=== PATIENT | male | born 1945 | race Caucasian/White ===

== ENCOUNTER 2019-04-07 07:25 | Observation (INO) | payer MEDICARE ==
--- NOTE | 2019-04-07 07:43 | EDM.PDOC ---
ED HPI GENERAL MEDICAL PROBLEM - General Chief Complaint: Chest Pain Stated Complaint: SHORTNESS OF BREATH Time Seen by Provider: 04/07/19 07:40 - History of Present Illness INITIAL COMMENTS - FREE TEXT/NARRATIVE: HISTORY AND PHYSICAL: History of present illness: Patient 74-year-old white male history of chronic atrial fibrillation recently drove from [place] to [place] and developed shortness of breath after arrival this is primarily exertional. No associated chest pain he states he is currently on Xarelto and is compliant he denies history of pulmonary embolism denies history of congestive heart failure. Pulse oximetry on arrival 87% Review of systems: As per history of present illness and below otherwise all systems reviewed and negative. Past medical history: As per history of present illness and as reviewed below otherwise noncontributory. Surgical history: As per history of present illness and as reviewed below otherwise noncontributory. Social history: No reported history of drug or alcohol abuse. Family history: As per history of present illness and as reviewed below otherwise noncontributory. Physical exam: HEENT: Atraumatic, normocephalic, pupils reactive, negative for conjunctival pallor or scleral icterus, mucous membranes moist, throat clear, neck supple, nontender, trachea midline. Lungs: Clear to auscultation, breath sounds equal bilaterally, chest nontender. Heart: S1S2, irregularly irregular, negative for clicks, rubs, or JVD. Abdomen: Soft, nondistended, nontender. Negative for masses or hepatosplenomegaly. Negative for costovertebral tenderness. Pelvis: Stable nontender. Genitourinary: Deferred. Rectal: Deferred. Extremities: Atraumatic, negative for cords or calf pain. Neurovascular unremarkable. Neuro: Awake, alert, oriented. Cranial nerves II through XII unremarkable. Cerebellum unremarkable. Motor and sensory unremarkable throughout. Exam nonfocal. Diagnostics: CBC CMP PT/INR CTA chest BNP Therapeutics: IV O2 monitor Impression: #1 dyspnea #2 hypoxemia Definitive disposition and diagnosis as appropriate pending reevaluation and review of above. Lower Back Pain Score (Numeric/FACES): 2 - Related Data Allergies Allergy/AdvReac Type Severity Reaction Status Date / Time No Known Allergies Allergy Verified 04/07/19 07:34 Home Meds: Home Meds Allopurinol [Zyloprim] 04/07/19 [History] Metoprolol Tartrate [Lopressor] 100 mg PO 04/07/19 [History] Naproxen Sodium [Aleve] 04/07/19 [History] Rivaroxaban [Xarelto] 04/07/19 [History] Tamsulosin [Tamsulosin 24 Hr] 0.4 mg PO 04/07/19 [History] atorvaSTATin [Lipitor] 04/07/19 [History] glipiZIDE [Glucotrol] 04/07/19 [History] metFORMIN [Glucophage XR] 04/07/19 [History] Past Medical History Cardiovascular History: Reports: Afib, High Cholesterol, Hypertension Genitourinary History: Reports: Renal Calculus Musculoskeletal History: Reports: Other (See Below) Other Musculoskeletal History: lumbar stenosis Endocrine/Metabolic History: Reports: Diabetes, Type II Social & Family History - Tobacco Use Smoking Status *Q: Never Smoker ED ROS GENERAL - Review of Systems Review Of Systems: ROS reveals no pertinent complaints other than HPI. ED EXAM, GENERAL - Physical Exam Exam: See Below (See dictation) Course - Vital Signs Last Recorded V/S: Last Vital Signs Temp 37.1 C 04/07/19 07:34 Pulse 76 04/07/19 09:59 Resp 15 04/07/19 09:59 BP 142/76 H 04/07/19 09:59 Pulse Ox 97 04/07/19 09:59 - Orders/Labs/Meds Orders: Active Orders 24 hr Category Date Time Status Cardiac Monitoring [RC] . DIRECTED Care 04/07/19 07:36 Active EKG Documentation Completion [RC] STAT Care 04/07/19 07:35 Active Labs: Laboratory Tests 04/07/19 04/07/19 04/07/19 Range/Units 07:36 07:36 07:36 WBC 8.23 (4.0-11.0) K/uL RBC 4.27 L (4.50-5.90) M/uL Hgb 13.2 (13.0-17.0) g/dL Hct 41.6 (38.0-50.0) % MCV 97.4 (80.0-98.0) fL MCH 30.9 (27.0-32.0) pg MCHC 31.7 (31.0-37.0) g/dL RDW Std Deviation 50.9 (28.0-62.0) fl RDW Coeff of Natalia 15 (11.0-15.0) % Plt Count 200 (150-400) K/uL MPV 11.20 (7.40-12.00) fL Neut % (Auto) 70.3 (48.0-80.0) % Lymph % (Auto) 15.9 L (16.0-40.0) % [place] % (Auto) 10.8 (0.0-15.0) % Eos % (Auto) 2.8 (0.0-7.0) % Baso % (Auto) 0.2 (0.0-1.5) % Neut # (Auto) 5.8 H (1.4-5.7) K/uL Lymph # (Auto) 1.3 (0.6-2.4) K/uL [place] # (Auto) 0.9 H (0.0-0.8) K/uL Eos # (Auto) 0.2 (0.0-0.7) K/uL Baso # (Auto) 0.0 (0.0-0.1) K/uL Nucleated RBC % 0.0 /100WBC Nucleated RBCs # 0 K/uL INR 1.26 Sodium 145 (136-148) mmol/L Potassium 4.3 (3.5-5.1) mmol/L Chloride 108 H (98-107) mmol/L Carbon Dioxide 25.6 (21.0-32.0) mmol/L BUN 19 H (7.0-18.0) mg/dL Creatinine 1.1 (0.8-1.3) mg/dL Est Cr Clr Drug Dosing 68.60 mL/min Estimated GFR (MDRD) > 60.0 ml/min Glucose 164 H (74-106) mg/dL Calcium 9.3 (8.5-10.1) mg/dL Total Bilirubin 0.9 (0.2-1.0) mg/dL AST 11 L (15-37) IU/L ALT 9 L (14-63) IU/L Alkaline Phosphatase 101 (46-116) U/L Troponin I < 0.050 (0.000-0.056) ng/mL B-Natriuretic Peptide (<100) PG/ML Total Protein 7.0 (6.4-8.2) g/dL Albumin 4.0 (3.4-5.0) g/dL Globulin 3.0 (2.6-4.0) g/dL Albumin/Globulin Ratio 1.3 (0.9-1.6) Urine Color Urine Appearance Urine pH (5.0-8.0) Ur Specific [place] (1.001-1.035) Urine Protein (NEGATIVE) mg/dL Urine Glucose (UA) (NEGATIVE) mg/dL Urine Ketones (NEGATIVE) mg/dL Urine Occult Blood (NEGATIVE) Urine Nitrite (NEGATIVE) Urine Bilirubin (NEGATIVE) Urine Urobilinogen (<2.0) EU/dL Ur Leukocyte Esterase (NEGATIVE) Urine RBC (0-2/HPF) Urine WBC (0-5/HPF) Ur Epithelial Cells (NONE-FEW) Urine Bacteria (NEGATIVE) 04/07/19 04/07/19 Range/Units 07:36 09:18 WBC (4.0-11.0) K/uL RBC (4.50-5.90) M/uL Hgb (13.0-17.0) g/dL Hct (38.0-50.0) % MCV (80.0-98.0) fL MCH (27.0-32.0) pg MCHC (31.0-37.0) g/dL RDW Std Deviation (28.0-62.0) fl RDW Coeff of Natalia (11.0-15.0) % Plt Count (150-400) K/uL MPV (7.40-12.00) fL Neut % (Auto) (48.0-80.0) % Lymph % (Auto) (16.0-40.0) % [place] % (Auto) (0.0-15.0) % Eos % (Auto) (0.0-7.0) % Baso % (Auto) (0.0-1.5) % Neut # (Auto) (1.4-5.7) K/uL Lymph # (Auto) (0.6-2.4) K/uL [place] # (Auto) (0.0-0.8) K/uL Eos # (Auto) (0.0-0.7) K/uL Baso # (Auto) (0.0-0.1) K/uL Nucleated RBC % /100WBC Nucleated RBCs # K/uL INR Sodium (136-148) mmol/L Potassium (3.5-5.1) mmol/L Chloride (98-107) mmol/L Carbon Dioxide (21.0-32.0) mmol/L BUN (7.0-18.0) mg/dL Creatinine (0.8-1.3) mg/dL Est Cr Clr Drug Dosing mL/min Estimated GFR (MDRD) ml/min Glucose (74-106) mg/dL Calcium (8.5-10.1) mg/dL Total Bilirubin (0.2-1.0) mg/dL AST (15-37) IU/L ALT (14-63) IU/L Alkaline Phosphatase (46-116) U/L Troponin I (0.000-0.056) ng/mL B-Natriuretic Peptide 308 H (<100) PG/ML Total Protein (6.4-8.2) g/dL Albumin (3.4-5.0) g/dL Globulin (2.6-4.0) g/dL Albumin/Globulin Ratio (0.9-1.6) Urine Color YELLOW Urine Appearance CLEAR Urine pH 5.5 (5.0-8.0) Ur Specific [place] 1.010 (1.001-1.035) Urine Protein NEGATIVE (NEGATIVE) mg/dL Urine Glucose (UA) NEGATIVE (NEGATIVE) mg/dL Urine Ketones NEGATIVE (NEGATIVE) mg/dL Urine Occult Blood TRACE-INTACT H (NEGATIVE) Urine Nitrite NEGATIVE (NEGATIVE) Urine Bilirubin NEGATIVE (NEGATIVE) Urine Urobilinogen 0.2 (<2.0) EU/dL Ur Leukocyte Esterase NEGATIVE (NEGATIVE) Urine RBC 0-2 (0-2/HPF) Urine WBC 0-1 (0-5/HPF) Ur Epithelial Cells NOT SEEN (NONE-FEW) Urine Bacteria RARE (NEGATIVE) Meds: Medications Discontinued Medications Generic Name Dose Route Start Last Admin Trade Name Freq PRN Reason Stop Dose Admin Furosemide 20 mg 04/07/19 09:05 04/07/19 09:12 Lasix IVPUSH 04/07/19 09:06 20 mg NOW ONE Administration Iopamidol 50 ml 04/07/19 08:53 04/07/19 08:53 Isovue Multipack-370 (76%) IVPUSH 04/07/19 08:54 50 ml ONETIME STA Administration Departure - Departure Time of Disposition: 10:26 Disposition: Refer to Observation Condition: Good Clinical Impression: Dyspnea, Hypoxemia, Chronic atrial fibrillation, Bilateral pleural effusion, CHF (congestive heart failure) - Discharge Information Referrals: PCP,Not In Area [Primary Care Provider] - Forms: ED Department Discharge - My Orders Last 24 Hours: My Active Orders 04/07/19 07:35 EKG Documentation Completion [RC] STAT 04/07/19 07:36 Cardiac Monitoring [RC] . DIRECTED - Assessment/Plan Last 24 Hours: My Active Orders 04/07/19 07:35 EKG Documentation Completion [RC] STAT 04/07/19 07:36 Cardiac Monitoring [RC] . DIRECTED
[2019-04-07 08:12] LABS: CHLORIDE,CL 108 mmol/L (98-107); SODIUM,NA 145 mmol/L (136-148)
[2019-04-07] MEDS ORDERED: Iopamidol 755 MG/ML 500 ML Multipack Bottle IVPUSH STA (08:53)
[2019-04-07] MEDS ORDERED: Furosemide 40 MG/4 ML VIAL IVPUSH ONE (09:05)
--- NOTE | 2019-04-07 10:25 | CT ---
Report: INDICATION: Shortness of breath. TECHNIQUE: Multiple axial images were obtained from the apices to the diaphragm per the pulmonary artery embolism protocol after administration of 50 mL of Isovue-370 intravenously. Sagittal and coronal re-formatted was were obtained. COMPARISON: None. FINDINGS: There are small bilateral effusions with atelectasis. There are emphysematous changes in the lungs. There is a calcified granuloma in the left lower lobe with calcified subcarinal lymph nodes. There is no axillary, mediastinal or hilar adenopathy. 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 There are atherosclerotic calcifications. There is no pulmonary embolism seen. There are splenic calcifications consistent with previous granulomatous disease. IMPRESSION: No pulmonary embolism seen. Small bilateral effusions with atelectasis. Emphysematous changes in lungs. 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 Evidence of previous granulomatous disease. Signed by: Librado Delong MD @04/07/2019 9:14:25 AM Please note that all CT scans at this facility use dose modulation, iterative reconstruction, and/or weight-based dosing when appropriate to reduce radiation dose to as low as reasonably achievable. DW/Dictated by: Librado Delong MD @ 04/07/2019 9:14:00 AM (Electronically Signed)
[2019-04-07] MEDS ORDERED: Acetaminophen 325 MG Tab PO PRN (11:05)
[2019-04-07] MEDS ORDERED: oxyCODONE 5 MG Tab PO PRN (11:05)
--- NOTE | 2019-04-07 11:09 | PCM.HP ---
H&P History of Present Illness - General Date of Service: 04/07/19 Admit Problem/Dx: Admission Diagnosis/Problem Admission Diagnosis/Problem Dyspnea Source of Information: Patient, Family History Limitations: Reports: No Limitations - History of Present Illness Initial Comments - Free Text/Narative: The patient is a 74-year-old gentleman who is presented to the emergency department out of concern for chest pressure or tightness. Patient says that he has had these episodes off and on for the past several days. The patient also has had some shortness of breath associated with this. He's had no dizziness or lightheadedness. No nausea or vomiting. The patient is a diabetic. He also has hypertension as well as a history of heart disease. He is in chronic atrial fibrillation and has been taking medication for rate control as well as anticoagulation. The patient does not have any pain at the present time. He does not use oxygen at home. Onset of Symptoms: Reports: Gradual Duration of Symptoms: Reports: Day(s): Location: Reports: Chest Quality: Reports: Pressure Severity: Mild Improves with: Reports: None Worsens with: Reports: None Associated Symptoms: Reports: No Other Symptoms Lower Back Pain Score (Numeric/FACES): 2 - Related Data Allergies/Adverse Reactions: Allergies Allergy/AdvReac Type Severity Reaction Status Date / Time No Known Allergies Allergy Verified 04/07/19 07:34 Home Medications: Home Meds Allopurinol [Zyloprim] 300 mg PO BEDTIME 04/07/19 [History] Gabapentin [Neurontin] 100 mg PO TID 04/07/19 [History] Metoprolol Succinate 100 mg PO BEDTIME 04/07/19 [History] Naproxen Sodium [Aleve] 220 mg PO BID PRN 04/07/19 [History] Rivaroxaban [Xarelto] 25 mg PO BEDTIME 04/07/19 [History] Tamsulosin [Tamsulosin 24 Hr] 0.4 mg PO DAILY 04/07/19 [History] atorvaSTATin [Lipitor] 40 mg PO BEDTIME 04/07/19 [History] glipiZIDE [Glucotrol] 5 mg PO BID 04/07/19 [History] metFORMIN [Glucophage XR] 1,000 mg PO BID 04/07/19 [History] Past Medical History HEENT History: Reports: None Cardiovascular History: Reports: Afib, High Cholesterol, Hypertension Respiratory History: Reports: None Gastrointestinal History: Reports: None Genitourinary History: Reports: Renal Calculus Musculoskeletal History: Reports: Other (See Below) Other Musculoskeletal History: lumbar stenosis Neurological History: Reports: None Psychiatric History: Reports: None Endocrine/Metabolic History: Reports: Diabetes, Type II Hematologic History: Reports: None Immunologic History: Reports: None Oncologic (Cancer) History: Reports: Colon Dermatologic History: Reports: None Social & Family History - Tobacco Use Smoking Status *Q: Never Smoker - Alcohol Use Alcohol Use History: Yes Alcohol Use in Last Twelve Months: Yes Alcohol Use Frequency: Weekly - Living Situation & Occupation Living situation: Reports: , with Spouse Occupation: Retired H&P Review of Systems - Review of Systems: Review Of Systems: See Below General: Reports: No Symptoms HEENT: Reports: No Symptoms Pulmonary: Reports: Shortness of Breath Cardiovascular: Reports: Chest Pain Gastrointestinal: Reports: No Symptoms Genitourinary: Reports: No Symptoms Musculoskeletal: Reports: No Symptoms Skin: Reports: No Symptoms Psychiatric: Reports: No Symptoms Neurological: Reports: No Symptoms Hematologic/Lymphatic: Reports: No Symptoms Immunologic: Reports: No Symptoms Exam - Exam Exam: See Below - Vital Signs Vital Signs: Last Vital Signs Temp 37.1 C 04/07/19 07:34 Pulse 108 H 04/07/19 10:39 Resp 15 04/07/19 10:39 BP 149/107 H 04/07/19 10:39 Pulse Ox 85 L 04/07/19 10:39 Weight: 104.326 kg - Exam Quality Assessment: Supplemental Oxygen General: Alert, Oriented, Cooperative HEENT: Conjunctiva Clear, EACs Clear, EOMI, Mucosa Moist & [place], Nares Patent, Pupils Equal, PERRLA Neck: Supple, Trachea Midline Lungs: Clear to Auscultation, Normal Respiratory Effort Cardiovascular: Regular Rate, Irregular Rhythm. No: Systolic Murmur, Diastolic Murmur GI/Abdominal Exam: Normal Bowel Sounds, Soft, Non-Tender, No Distention. No: Guarding, Rigid, Rebound Back Exam: Normal Inspection, Full Range of Motion Extremities: Normal Inspection, Normal Range of Motion, No Pedal Edema Skin: Warm, Dry, Intact Neurological: Cranial Nerves Intact Neuro Extensive - Mental Status: Alert, Oriented x3 Psychiatric: Alert, Normal Affect, Normal Mood - Patient Data Lab Results Last 24 hrs: Laboratory Results - last 24 hr 04/07/19 04/07/19 04/07/19 Range/Units 07:36 07:36 07:36 WBC 8.23 (4.0-11.0) K/uL RBC 4.27 L (4.50-5.90) M/uL Hgb 13.2 (13.0-17.0) g/dL Hct 41.6 (38.0-50.0) % MCV 97.4 (80.0-98.0) fL MCH 30.9 (27.0-32.0) pg MCHC 31.7 (31.0-37.0) g/dL RDW Std Deviation 50.9 (28.0-62.0) fl RDW Coeff of Natalia 15 (11.0-15.0) % Plt Count 200 (150-400) K/uL MPV 11.20 (7.40-12.00) fL Neut % (Auto) 70.3 (48.0-80.0) % Lymph % (Auto) 15.9 L (16.0-40.0) % [place] % (Auto) 10.8 (0.0-15.0) % Eos % (Auto) 2.8 (0.0-7.0) % Baso % (Auto) 0.2 (0.0-1.5) % Neut # (Auto) 5.8 H (1.4-5.7) K/uL Lymph # (Auto) 1.3 (0.6-2.4) K/uL [place] # (Auto) 0.9 H (0.0-0.8) K/uL Eos # (Auto) 0.2 (0.0-0.7) K/uL Baso # (Auto) 0.0 (0.0-0.1) K/uL Nucleated RBC % 0.0 /100WBC Nucleated RBCs # 0 K/uL INR 1.26 Sodium 145 (136-148) mmol/L Potassium 4.3 (3.5-5.1) mmol/L Chloride 108 H (98-107) mmol/L Carbon Dioxide 25.6 (21.0-32.0) mmol/L BUN 19 H (7.0-18.0) mg/dL Creatinine 1.1 (0.8-1.3) mg/dL Est Cr Clr Drug Dosing 68.60 mL/min Estimated GFR (MDRD) > 60.0 ml/min Glucose 164 H (74-106) mg/dL Calcium 9.3 (8.5-10.1) mg/dL Total Bilirubin 0.9 (0.2-1.0) mg/dL AST 11 L (15-37) IU/L ALT 9 L (14-63) IU/L Alkaline Phosphatase 101 (46-116) U/L Troponin I < 0.050 (0.000-0.056) ng/mL B-Natriuretic Peptide (<100) PG/ML Total Protein 7.0 (6.4-8.2) g/dL Albumin 4.0 (3.4-5.0) g/dL Globulin 3.0 (2.6-4.0) g/dL Albumin/Globulin Ratio 1.3 (0.9-1.6) Urine Color Urine Appearance Urine pH (5.0-8.0) Ur Specific [place] (1.001-1.035) Urine Protein (NEGATIVE) mg/dL Urine Glucose (UA) (NEGATIVE) mg/dL Urine Ketones (NEGATIVE) mg/dL Urine Occult Blood (NEGATIVE) Urine Nitrite (NEGATIVE) Urine Bilirubin (NEGATIVE) Urine Urobilinogen (<2.0) EU/dL Ur Leukocyte Esterase (NEGATIVE) Urine RBC (0-2/HPF) Urine WBC (0-5/HPF) Ur Epithelial Cells (NONE-FEW) Urine Bacteria (NEGATIVE) 04/07/19 04/07/19 Range/Units 07:36 09:18 WBC (4.0-11.0) K/uL RBC (4.50-5.90) M/uL Hgb (13.0-17.0) g/dL Hct (38.0-50.0) % MCV (80.0-98.0) fL MCH (27.0-32.0) pg MCHC (31.0-37.0) g/dL RDW Std Deviation (28.0-62.0) fl RDW Coeff of Natalia (11.0-15.0) % Plt Count (150-400) K/uL MPV (7.40-12.00) fL Neut % (Auto) (48.0-80.0) % Lymph % (Auto) (16.0-40.0) % [place] % (Auto) (0.0-15.0) % Eos % (Auto) (0.0-7.0) % Baso % (Auto) (0.0-1.5) % Neut # (Auto) (1.4-5.7) K/uL Lymph # (Auto) (0.6-2.4) K/uL [place] # (Auto) (0.0-0.8) K/uL Eos # (Auto) (0.0-0.7) K/uL Baso # (Auto) (0.0-0.1) K/uL Nucleated RBC % /100WBC Nucleated RBCs # K/uL INR Sodium (136-148) mmol/L Potassium (3.5-5.1) mmol/L Chloride (98-107) mmol/L Carbon Dioxide (21.0-32.0) mmol/L BUN (7.0-18.0) mg/dL Creatinine (0.8-1.3) mg/dL Est Cr Clr Drug Dosing mL/min Estimated GFR (MDRD) ml/min Glucose (74-106) mg/dL Calcium (8.5-10.1) mg/dL Total Bilirubin (0.2-1.0) mg/dL AST (15-37) IU/L ALT (14-63) IU/L Alkaline Phosphatase (46-116) U/L Troponin I (0.000-0.056) ng/mL B-Natriuretic Peptide 308 H (<100) PG/ML Total Protein (6.4-8.2) g/dL Albumin (3.4-5.0) g/dL Globulin (2.6-4.0) g/dL Albumin/Globulin Ratio (0.9-1.6) Urine Color YELLOW Urine Appearance CLEAR Urine pH 5.5 (5.0-8.0) Ur Specific [place] 1.010 (1.001-1.035) Urine Protein NEGATIVE (NEGATIVE) mg/dL Urine Glucose (UA) NEGATIVE (NEGATIVE) mg/dL Urine Ketones NEGATIVE (NEGATIVE) mg/dL Urine Occult Blood TRACE-INTACT H (NEGATIVE) Urine Nitrite NEGATIVE (NEGATIVE) Urine Bilirubin NEGATIVE (NEGATIVE) Urine Urobilinogen 0.2 (<2.0) EU/dL Ur Leukocyte Esterase NEGATIVE (NEGATIVE) Urine RBC 0-2 (0-2/HPF) Urine WBC 0-1 (0-5/HPF) Ur Epithelial Cells NOT SEEN (NONE-FEW) Urine Bacteria RARE (NEGATIVE) Result Diagrams: 04/07/19 07:36 04/07/19 07:36 *Q Meaningful Use (ADM) - VTE *Q VTE Pharmacological Contraindications *Q: Risk of Bleeding - Problem List (1) Atypical chest pain SNOMED Code(s): 049063613 ICD Code: R07.89 - OTHER CHEST PAIN Status: Acute Priority: High Current Visit: Yes (2) Chronic anticoagulation SNOMED Code(s): 157637943 ICD Code: Z79.01 - TOWN CLERK (CURRENT) USE OF ANTICOAGULANTS Status: Chronic Priority: High Current Visit: Yes (3) Chronic atrial fibrillation SNOMED Code(s): 603258131 ICD Code: I48.2 - CHRONIC ATRIAL FIBRILLATION Status: Chronic Priority: Medium Current Visit: Yes (4) Hypertension SNOMED Code(s): 42032166 ICD Code: I10 - ESSENTIAL (PRIMARY) HYPERTENSION Status: Chronic Priority : Medium Current Visit: Yes Qualifiers: Hypertension type: essential hypertension Qualified Code(s): I10 - Essential (primary) hypertension Problem List Initiated/Reviewed/Updated: Yes Orders Last 24hrs: Active Orders 24 hr Category Date Time Status Admission Status [Patient Status] [ADT] Stat ADT 04/07/19 10:26 Active Ambulate [RC] PER UNIT ROUTINE Care 04/07/19 11:06 Ordered Cardiac Monitoring [RC] . DIRECTED Care 04/07/19 07:36 Active Cardiac Monitoring [RC] CONTINUOUS Care 04/07/19 11:04 Active Diabetes Education [RC] Click to Edit Care 04/07/19 11:06 Ordered EKG Documentation Completion [RC] STAT Care 04/07/19 07:35 Active Oxygen Therapy [RC] PRN Care 04/07/19 11:01 Active Oxygen Therapy [RC] PRN Care 04/07/19 11:04 Active Oxygen Therapy [RC] PRN Care 04/07/19 11:05 Ordered Up ad Janice [RC] ASDIRECTED Care 04/07/19 11:04 Active VTE/DVT Education [RC] PER UNIT ROUTINE Care 04/07/19 11:01 Active VTE/DVT Education [RC] PER UNIT ROUTINE Care 04/07/19 11:04 Active VTE/DVT Education [RC] PER UNIT ROUTINE Care 04/07/19 11:05 Ordered Vital Signs [RC] Q4H Care 04/07/19 11:01 Active Vital Signs [RC] Q4H Care 04/07/19 11:04 Active Vital Signs [RC] Q4H Care 04/07/19 11:05 Ordered [place] [employer] Diet [DIET] Diet 04/07/19 Dinner Ordered TROPONIN I [CHEM] Q6H Lab 04/07/19 12:00 Ordered TROPONIN I [CHEM] Q6H Lab 04/07/19 18:00 Ordered Acetaminophen [Tylenol] Med 04/07/19 11:05 Ordered 650 mg PO Q4H PRN Sodium Chloride 0.9% [Normal Saline] 1,000 ml Med 04/07/19 11:15 Ordered IV ASDIRECTED oxyCODONE Med 04/07/19 11:05 Ordered 5 mg PO Q4H PRN Glucose Management Sub Q Reflex [OM.PC] Click To Edit Oth 04/07/19 11:05 Ordered VTE Pharmacological Contraindications [AST] Per Unit Oth 04/07/19 11:05 Ordered Routine Resuscitation Status Routine Resus Stat 04/07/19 11:01 Ordered Assessment/Plan Comment:: The patient is a 74-year-old gentleman who will be kept under observation out of concern for anginal equivalents with regards to his chest pressure and shortness of breath. I've ordered repeat troponins. The patient will also not need to have DVT prophylaxis as he is currently anticoagulated with the uses Xarelto. His dose of his Xarelto will be continued. The patient also has been encouraged to ambulate. I've advised the patient has that if he does have 3 sets of troponins that were essentially negative we'll consider discharge home. If the patient does have elevations in his troponins the patient will need to be evacuated to tertiary care center. He will be kept on telemetry. He' ll have his vital signs checked and his antihypertensive medications will be adjusted accordingly. The patient will also have a cardiac diet. He should be appropriate for discharge tomorrow.
[2019-04-07] MEDS: Sodium Chloride 0.9% 1,000 ML IV SCH (12:46)
[2019-04-07] MEDS: Insulin Aspart 100 Units/ML 3 ML Pen SUBCUT SCH ×3 (12:46→21:06)
[2019-04-07] MEDS ORDERED: Metoprolol Succinate 100 MG Tab.ER PO SCH (21:00)
[2019-04-07] MEDS ORDERED: Rivaroxaban 10 MG Tab PO SCH (21:00)
[2019-04-07] MEDS ORDERED: Allopurinol 300 MG Tab PO SCH (21:00)
[2019-04-07] MEDS ORDERED: atorvaSTATin 40 MG Tab PO SCH (21:00)
[2019-04-07] MEDS: Gabapentin 100 MG Cap PO SCH (21:03)
[2019-04-08] MEDS: Sodium Chloride 0.9% 1,000 ML IV SCH (02:08)
[2019-04-08] MEDS: Gabapentin 100 MG Cap PO SCH (06:09)
--- NOTE | 2019-04-08 06:43 | PCM.DCSUM1 ---
Discharge Summary - Hospital Course Diagnosis: Stroke: No - Discharge Data Discharge Date: 04/08/19 Discharge Disposition: Home, Self-Care 01 Condition: Good - Discharge Diagnosis/Problem(s) (1) Atypical chest pain SNOMED Code(s): 418828406 ICD Code: R07.89 - OTHER CHEST PAIN Status: Resolved Priority: High Current Visit: Yes (2) Chronic anticoagulation SNOMED Code(s): 969610183 ICD Code: Z79.01 - PENITENTIARY (CURRENT) USE OF ANTICOAGULANTS Status: Chronic Priority: High Current Visit: Yes (3) Chronic atrial fibrillation SNOMED Code(s): 380715811 ICD Code: I48.2 - CHRONIC ATRIAL FIBRILLATION Status: Chronic Priority: Medium Current Visit: Yes (4) Hypertension SNOMED Code(s): 60063001 ICD Code: I10 - ESSENTIAL (PRIMARY) HYPERTENSION Status: Chronic Priority : Medium Current Visit: Yes Qualifiers: Hypertension type: essential hypertension Qualified Code(s): I10 - Essential (primary) hypertension (5) Diabetes type 2, controlled SNOMED Code(s): 70366639, 077089836 ICD Code: E11.9 - TYPE 2 DIABETES MELLITUS WITHOUT COMPLICATIONS Status: Chronic Priority: High Current Visit: Yes Qualifiers: Diabetes mellitus half-way insulin use: without half-way use Diabetes mellitus complication status: without complication Qualified Code(s): E11.9 - Type 2 diabetes mellitus without complications - Patient Summary/Data Hospital Course: The patient is a 74-year-old gentleman who had presented to the emergency department with a primary complaint of chest pressure and tightness. He also had shortness of breath to accompany this. The patient had 3 separate episodes of this over the past 6 days. The patient is from [place] and he normally follows up with a hog driver there. The patient was admitted secondary to concern for anginal equivalents. Patient has a history of chronic atrial fibrillation and he is currently chronically anticoagulated. During the patient' s short course of hospitalization he remained well oxygenated. He had 3 sets of troponins which were taken and nondetectable. Overnight telemetry showed no events. The patient had a CT angiogram of his chest on April 07, 2019 which showed no pulmonary emboli and he was also noted to have small bilateral pleural effusions with atelectasis. The patient had some emphysematous changes as well. The patient had been tolerating his diet. He has not required oxygen throughout his course of hospitalization. The patient is recommended to continue with his diet as tolerated. He is also to have activity as tolerated. The patient has been recommended follow-up with his primary care physician upon return home. The patient has been hemodynamically stable and he is discharged from acute hospitalization with recommendations listed above. - Patient Instructions Diet: Heart Healthy Diet, Diabetic Diet Activity: As Tolerated - Discharge Plan *PRESCRIPTION DRUG MONITORING PROGRAM REVIEWED*: No *COPY OF PRESCRIPTION DRUG MONITORING REPORT IN PATIENT EBER: No Home Medications: Home Meds Allopurinol [Zyloprim] 300 mg PO BEDTIME 04/07/19 [History] Gabapentin [Neurontin] 100 mg PO TID 04/07/19 [History] Metoprolol Succinate 100 mg PO BEDTIME 04/07/19 [History] Naproxen Sodium [Aleve] 220 mg PO BID PRN 04/07/19 [History] Rivaroxaban [Xarelto] 25 mg PO BEDTIME 04/07/19 [History] Tamsulosin [Flomax] 0.4 mg PO DAILY 04/07/19 [History] atorvaSTATin [Lipitor] 40 mg PO BEDTIME 04/07/19 [History] glipiZIDE [Glucotrol] 5 mg PO BID 04/07/19 [History] metFORMIN [Glucophage XR] 1,000 mg PO BID 04/07/19 [History] Patient Handouts: Hypoxemia, Nonspecific Chest Pain, [id number], Atrial Fibrillation, [id number] - Discharge Summary/Plan Comment DC Time >30 min.: Yes - General Info Date of Service: 04/08/19 Admission Dx/Problem (Free Text: The patient overall is doing much better today. He has denied any dizziness or lightheadedness. No chest pressure. - Patient Data Vitals - Most Recent: Last Vital Signs Temp 37.2 C 04/08/19 04:00 Pulse 77 04/08/19 04:00 Resp 18 04/08/19 04:00 BP 146/89 H 04/08/19 04:00 Pulse Ox 93 L 04/08/19 04:00 Weight - Most Recent: 104.326 kg I&O - Last 24 hours: Intake & Output 04/07/19 04/07/19 04/08/19 14:59 22:59 06:59 Intake Total 460 1294 Output Total 900 1050 Balance -440 244 Lab Results - Last 24 hrs: Laboratory Results - last 24 hr 04/07/19 04/07/19 04/07/19 Range/Units 07:36 07:36 07:36 WBC 8.23 (4.0-11.0) K/uL RBC 4.27 L (4.50-5.90) M/uL Hgb 13.2 (13.0-17.0) g/dL Hct 41.6 (38.0-50.0) % MCV 97.4 (80.0-98.0) fL MCH 30.9 (27.0-32.0) pg MCHC 31.7 (31.0-37.0) g/dL RDW Std Deviation 50.9 (28.0-62.0) fl RDW Coeff of Natalia 15 (11.0-15.0) % Plt Count 200 (150-400) K/uL MPV 11.20 (7.40-12.00) fL Neut % (Auto) 70.3 (48.0-80.0) % Lymph % (Auto) 15.9 L (16.0-40.0) % [place] % (Auto) 10.8 (0.0-15.0) % Eos % (Auto) 2.8 (0.0-7.0) % Baso % (Auto) 0.2 (0.0-1.5) % Neut # (Auto) 5.8 H (1.4-5.7) K/uL Lymph # (Auto) 1.3 (0.6-2.4) K/uL [place] # (Auto) 0.9 H (0.0-0.8) K/uL Eos # (Auto) 0.2 (0.0-0.7) K/uL Baso # (Auto) 0.0 (0.0-0.1) K/uL Nucleated RBC % 0.0 /100WBC Nucleated RBCs # 0 K/uL INR 1.26 Sodium 145 (136-148) mmol/L Potassium 4.3 (3.5-5.1) mmol/L Chloride 108 H (98-107) mmol/L Carbon Dioxide 25.6 (21.0-32.0) mmol/L BUN 19 H (7.0-18.0) mg/dL Creatinine 1.1 (0.8-1.3) mg/dL Est Cr Clr Drug Dosing 68.60 mL/min Estimated GFR (MDRD) > 60.0 ml/min Glucose 164 H (74-106) mg/dL POC Glucose (60-110) mg/dL Calcium 9.3 (8.5-10.1) mg/dL Total Bilirubin 0.9 (0.2-1.0) mg/dL AST 11 L (15-37) IU/L ALT 9 L (14-63) IU/L Alkaline Phosphatase 101 (46-116) U/L Troponin I < 0.050 (0.000-0.056) ng/mL B-Natriuretic Peptide (<100) PG/ML Total Protein 7.0 (6.4-8.2) g/dL Albumin 4.0 (3.4-5.0) g/dL Globulin 3.0 (2.6-4.0) g/dL Albumin/Globulin Ratio 1.3 (0.9-1.6) Urine Color Urine Appearance Urine pH (5.0-8.0) Ur Specific [place] (1.001-1.035) Urine Protein (NEGATIVE) mg/dL Urine Glucose (UA) (NEGATIVE) mg/dL Urine Ketones (NEGATIVE) mg/dL Urine Occult Blood (NEGATIVE) Urine Nitrite (NEGATIVE) Urine Bilirubin (NEGATIVE) Urine Urobilinogen (<2.0) EU/dL Ur Leukocyte Esterase (NEGATIVE) Urine RBC (0-2/HPF) Urine WBC (0-5/HPF) Ur Epithelial Cells (NONE-FEW) Urine Bacteria (NEGATIVE) 04/07/19 04/07/19 04/07/19 Range/Units 07:36 09:18 12:04 WBC (4.0-11.0) K/uL RBC (4.50-5.90) M/uL Hgb (13.0-17.0) g/dL Hct (38.0-50.0) % MCV (80.0-98.0) fL MCH (27.0-32.0) pg MCHC (31.0-37.0) g/dL RDW Std Deviation (28.0-62.0) fl RDW Coeff of [place] (11.0-15.0) % Plt Count (150-400) K/uL MPV (7.40-12.00) fL Neut % (Auto) (48.0-80.0) % Lymph % (Auto) (16.0-40.0) % [place] % (Auto) (0.0-15.0) % Eos % (Auto) (0.0-7.0) % Baso % (Auto) (0.0-1.5) % Neut # (Auto) (1.4-5.7) K/uL Lymph # (Auto) (0.6-2.4) K/uL [place] # (Auto) (0.0-0.8) K/uL Eos # (Auto) (0.0-0.7) K/uL Baso # (Auto) (0.0-0.1) K/uL Nucleated RBC % /100WBC Nucleated RBCs # K/uL INR Sodium (136-148) mmol/L Potassium (3.5-5.1) mmol/L Chloride (98-107) mmol/L Carbon Dioxide (21.0-32.0) mmol/L BUN (7.0-18.0) mg/dL Creatinine (0.8-1.3) mg/dL Est Cr Clr Drug Dosing mL/min Estimated GFR (MDRD) ml/min Glucose (74-106) mg/dL POC Glucose (60-110) mg/dL Calcium (8.5-10.1) mg/dL Total Bilirubin (0.2-1.0) mg/dL AST (15-37) IU/L ALT (14-63) IU/L Alkaline Phosphatase (46-116) U/L Troponin I < 0.050 (0.000-0.056) ng/mL B-Natriuretic Peptide 308 H (<100) PG/ML Total Protein (6.4-8.2) g/dL Albumin (3.4-5.0) g/dL Globulin (2.6-4.0) g/dL Albumin/Globulin Ratio (0.9-1.6) Urine Color YELLOW Urine Appearance CLEAR Urine pH 5.5 (5.0-8.0) Ur Specific [place] 1.010 (1.001-1.035) Urine Protein NEGATIVE (NEGATIVE) mg/dL Urine Glucose (UA) NEGATIVE (NEGATIVE) mg/dL Urine Ketones NEGATIVE (NEGATIVE) mg/dL Urine Occult Blood TRACE-INTACT H (NEGATIVE) Urine Nitrite NEGATIVE (NEGATIVE) Urine Bilirubin NEGATIVE (NEGATIVE) Urine Urobilinogen 0.2 (<2.0) EU/dL Ur Leukocyte Esterase NEGATIVE (NEGATIVE) Urine RBC 0-2 (0-2/HPF) Urine WBC 0-1 (0-5/HPF) Ur Epithelial Cells NOT SEEN (NONE-FEW) Urine Bacteria RARE (NEGATIVE) 04/07/19 04/07/19 04/07/19 Range/Units 12:44 18:04 18:10 WBC (4.0-11.0) K/uL RBC (4.50-5.90) M/uL Hgb (13.0-17.0) g/dL Hct (38.0-50.0) % MCV (80.0-98.0) fL MCH (27.0-32.0) pg MCHC (31.0-37.0) g/dL RDW Std Deviation (28.0-62.0) fl RDW Coeff of Natalia (11.0-15.0) % Plt Count (150-400) K/uL MPV (7.40-12.00) fL Neut % (Auto) (48.0-80.0) % Lymph % (Auto) (16.0-40.0) % [place] % (Auto) (0.0-15.0) % Eos % (Auto) (0.0-7.0) % Baso % (Auto) (0.0-1.5) % Neut # (Auto) (1.4-5.7) K/uL Lymph # (Auto) (0.6-2.4) K/uL [place] # (Auto) (0.0-0.8) K/uL Eos # (Auto) (0.0-0.7) K/uL Baso # (Auto) (0.0-0.1) K/uL Nucleated RBC % /100WBC Nucleated RBCs # K/uL INR Sodium (136-148) mmol/L Potassium (3.5-5.1) mmol/L Chloride (98-107) mmol/L Carbon Dioxide (21.0-32.0) mmol/L BUN (7.0-18.0) mg/dL Creatinine (0.8-1.3) mg/dL Est Cr Clr Drug Dosing mL/min Estimated GFR (MDRD) ml/min Glucose (74-106) mg/dL POC Glucose 103 110 (60-110) mg/dL Calcium (8.5-10.1) mg/dL Total Bilirubin (0.2-1.0) mg/dL AST (15-37) IU/L ALT (14-63) IU/L Alkaline Phosphatase (46-116) U/L Troponin I < 0.050 (0.000-0.056) ng/mL B-Natriuretic Peptide (<100) PG/ML Total Protein (6.4-8.2) g/dL Albumin (3.4-5.0) g/dL Globulin (2.6-4.0) g/dL Albumin/Globulin Ratio (0.9-1.6) Urine Color Urine Appearance Urine pH (5.0-8.0) Ur Specific [place] (1.001-1.035) Urine Protein (NEGATIVE) mg/dL Urine Glucose (UA) (NEGATIVE) mg/dL Urine Ketones (NEGATIVE) mg/dL Urine Occult Blood (NEGATIVE) Urine Nitrite (NEGATIVE) Urine Bilirubin (NEGATIVE) Urine Urobilinogen (<2.0) EU/dL Ur Leukocyte Esterase (NEGATIVE) Urine RBC (0-2/HPF) Urine WBC (0-5/HPF) Ur Epithelial Cells (NONE-FEW) Urine Bacteria (NEGATIVE) 04/07/19 04/08/19 Range/Units 21:01 06:07 WBC (4.0-11.0) K/uL RBC (4.50-5.90) M/uL Hgb (13.0-17.0) g/dL Hct (38.0-50.0) % MCV (80.0-98.0) fL MCH (27.0-32.0) pg MCHC (31.0-37.0) g/dL RDW Std Deviation (28.0-62.0) fl RDW Coeff of Natalia (11.0-15.0) % Plt Count (150-400) K/uL MPV (7.40-12.00) fL Neut % (Auto) (48.0-80.0) % Lymph % (Auto) (16.0-40.0) % [place] % (Auto) (0.0-15.0) % Eos % (Auto) (0.0-7.0) % Baso % (Auto) (0.0-1.5) % Neut # (Auto) (1.4-5.7) K/uL Lymph # (Auto) (0.6-2.4) K/uL [place] # (Auto) (0.0-0.8) K/uL Eos # (Auto) (0.0-0.7) K/uL Baso # (Auto) (0.0-0.1) K/uL Nucleated RBC % /100WBC Nucleated RBCs # K/uL INR Sodium (136-148) mmol/L Potassium (3.5-5.1) mmol/L Chloride (98-107) mmol/L Carbon Dioxide (21.0-32.0) mmol/L BUN (7.0-18.0) mg/dL Creatinine (0.8-1.3) mg/dL Est Cr Clr Drug Dosing mL/min Estimated GFR (MDRD) ml/min Glucose (74-106) mg/dL POC Glucose 147 H 130 H (60-110) mg/dL Calcium (8.5-10.1) mg/dL Total Bilirubin (0.2-1.0) mg/dL AST (15-37) IU/L ALT (14-63) IU/L Alkaline Phosphatase (46-116) U/L Troponin I (0.000-0.056) ng/mL B-Natriuretic Peptide (<100) PG/ML Total Protein (6.4-8.2) g/dL Albumin (3.4-5.0) g/dL Globulin (2.6-4.0) g/dL Albumin/Globulin Ratio (0.9-1.6) Urine Color Urine Appearance Urine pH (5.0-8.0) Ur Specific [place] (1.001-1.035) Urine Protein (NEGATIVE) mg/dL Urine Glucose (UA) (NEGATIVE) mg/dL Urine Ketones (NEGATIVE) mg/dL Urine Occult Blood (NEGATIVE) Urine Nitrite (NEGATIVE) Urine Bilirubin (NEGATIVE) Urine Urobilinogen (<2.0) EU/dL Ur Leukocyte Esterase (NEGATIVE) Urine RBC (0-2/HPF) Urine WBC (0-5/HPF) Ur Epithelial Cells (NONE-FEW) Urine Bacteria (NEGATIVE) Med Orders - Current: Current Medications Acetaminophen (Tylenol) 650 mg PO Q4H PRN PRN Reason: Pain (Mild 1-3)/fever Allopurinol (Zyloprim) 300 mg PO BEDTIME [facility] Last Admin: 04/07/19 21:02 Dose: 300 mg Atorvastatin Calcium (Lipitor) 40 mg PO BEDTIME [facility] Last Admin: 04/07/19 21:03 Dose: 40 mg Gabapentin (Neurontin) 100 mg PO TID [facility] Last Admin: 04/08/19 06:09 Dose: 100 mg Sodium Chloride (Normal Saline) 1,000 mls @ 75 mls/hr IV ASDIRECTED [facility] Last Admin: 04/08/19 02:08 Dose: 75 mls/hr Insulin Aspart (Novolog) 0 unit SUBCUT ACBED [facility]; Protocol Last Admin: 04/07/19 21:06 Dose: Not Given Metoprolol Succinate (Toprol Xl) 100 mg PO BEDTIME [facility] Last Admin: 04/07/19 21:03 Dose: 100 mg Oxycodone HCl (Oxycodone) 5 mg PO Q4H PRN PRN Reason: Pain (moderate 4-6) Rivaroxaban (Xarelto) 20 mg PO BEDTIME [facility] Last Admin: 04/07/19 21:02 Dose: 20 mg Tamsulosin HCl (Flomax) 0.4 mg PO DAILY [facility] Discontinued Medications Furosemide (Lasix) 20 mg IVPUSH NOW ONE Stop: 04/07/19 09:06 Last Admin: 04/07/19 09:12 Dose: 20 mg Iopamidol (Isovue Multipack-370 (76%)) 50 ml IVPUSH ONETIME STA Stop: 04/07/19 08:54 Last Admin: 04/07/19 08:53 Dose: 50 ml - Exam Quality Assessment: Reports: Supplemental Oxygen General: Reports: Alert, Oriented, Cooperative, No Acute Distress HEENT: Reports: Pupils Equal, Pupils Reactive, EOMI, Mucous Membr. Moist/[place] Neck: Reports: Supple, Trachea Midline Lungs: Reports: Clear to Auscultation, Normal Respiratory Effort Cardiovascular: Reports: Regular Rate, Irregular Rhythm GI/Abdominal Exam: Normal Bowel Sounds, Soft, No Distention. No: Guarding, Rigid, Rebound Back Exam: Reports: Normal Inspection, Full Range of Motion Extremities: Normal Inspection, No Pedal Edema Skin: Reports: Warm, Dry, Intact Neurological: Reports: No New Focal Deficit Psy/Mental Status: Reports: Alert, Normal Affect, Normal Mood *Q Meaningful Use (DIS) - VTE *Q VTE Pharmacological Contraindications *Q: Risk of Bleeding
[2019-04-08] MEDS: Insulin Aspart 100 Units/ML 3 ML Pen SUBCUT SCH (07:37)
[2019-04-08] MEDS ORDERED: Tamsulosin 0.4 MG Cap.ER PO SCH (09:00)
== END 2019-04-08 11:00 | disposition home or self-care (01) ==
LOC: MW.ED 07:25 → MW.MS 10:40
PROVIDERS: ADMIT Internal Medicine; ATTEND Internal Medicine
DX: R07.89 Other chest pain (principal); I48.2 Chronic atrial fibrillation; I10 Essential (primary) hypertension; E11.9 Type 2 diabetes mellitus without complications; E78.00 Pure hypercholesterolemia, unspecified; Z79.01 Long term (current) use of anticoagulants; Z79.84 Long term (current) use of oral hypoglycemic drugs; Z79.899 Other long term (current) drug therapy
CPT/HCPCS: 36415; 71275; 80053; 81001; 82962; 83880; 84484; 85025; 85610; 93005; 96374; 99285; A9270; J1940; J7040; Q9967; 96361; G0378